=== PATIENT | female | born 1980 | race Caucasian/White ===

== ENCOUNTER 2017-01-28 21:42 | Emergency (ER) | payer MEDICAID ==
[~2017-01-28] VITALS: Ht 157.5 cm; Wt 46.3 kg
[~2017-01-28 21:42] MED LIST: ATIVAN1 MG PO; VENTOLIN H0.09 MG/Ac IH
[2017-01-28 21:45] VITALS: BP 125/70
--- NOTE | 2017-01-28 21:57 | NUR ---
PATIENT PRESENTS TO ED WITH C/O CP AND MICHAUD X 2 DAYS . 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 PT DENIES N/V/D; SKIN IS PINK/WARM/DRY; AAOX4 WITH EVEN AND STEADY GAIT; LUNGS CLEAR BL; HR EVEN AND REGULAR; PT DENIES ANY FEVER, SOB, OR COUGH AT THIS TIME; PATIENT STATES PAIN OF 10/10 AT THIS TIME; VSS; PATIENT POSITIONED FOR COMFORT; HOB ELEVATED; BEDRAILS UP X2; BED DOWN. ER MD MADE AWARE OF PT STATUS.
--- NOTE | 2017-01-28 21:57 | NUR ---
PT TAKEN TO BED 5
[2017-01-28] MEDS ORDERED: KETOROLAC 30 MG/ML VIAL IM ONE (22:25)
[2017-01-28] MEDS ORDERED: LORazepam 1 MG TAB PO ONE (22:25)
[2017-01-28] MEDS ORDERED: NACL 0.9% 1,000 ML IV ONE (23:35)
--- NOTE | 2017-01-29 00:54 | NUR ---
PT LEFT TO CT
--- NOTE | 2017-01-29 01:51 | NUR ---
PT RETURN FROM CT
--- NOTE | 2017-01-29 02:53 | NUR ---
IV removed, catheter intact and site benign. Applied folded 4x4 gauze and tape to stop bleeding.
[2017-01-29 02:54] VITALS: BP 114/76
--- NOTE | 2017-01-29 02:54 | NUR ---
Patient discharged with v/s stable. Written and verbal after care instructions given and explained. Patient alert, oriented and verbalized understanding of instructions. Ambulatory with steady gait. All questions addressed prior to discharge. ID band removed. Patient advised to follow up with PMD. Rx of TYLENOL #3 TAB given. Patient educated on indication of medication including possible reaction and side effects. Opportunity to ask questions provided and answered.
== END 2017-01-29 02:54 | disposition home or self-care (01) ==
LOC: MED 21:42
DX: R07.89 Other chest pain (principal); J45.909 Unspecified asthma, uncomplicated; F41.9 Anxiety disorder, unspecified; Z85.9 Personal history of malignant neoplasm, unspecified; Z88.0 Allergy status to penicillin
CPT/HCPCS: 36415; 71010; 71275; 80053; 82550; 82553; 83690; 84484; 85025; 85379; 93005; 96360; 96361; 96372; 99285; J1885; J7030; Q0092; Q9967

== ENCOUNTER 2017-11-02 02:20 | Emergency (ER) | payer MEDICAID ==
[~2017-11-02] VITALS: Ht 157.5 cm; Wt 41.7 kg
[~2017-11-02 02:20] MED LIST changes: +ALBU0.0912 IH; -ATIVAN1 MG PO; +LORA-476 PO; -VENTOLIN H0.09 MG/Ac IH
[2017-11-02 02:31] VITALS: BP 123/83
--- NOTE | 2017-11-02 02:41 | NUR ---
TO ER BED 11
--- NOTE | 2017-11-02 03:14 | NUR ---
PT STATES SHE WAS WALKING AND FELL, LEFT ANKLE IS SWOLLEN, SKIN INTACT, NO REDNESS OR BRUISING NOTED AT THIS TIME. PAIN 9/10 NON RADIATING TO LEFT ANKLE. PT DENIES TAKING MEDS AT HOME FOR PAIN. CMS INTACT, +PULSES.
[2017-11-02] MEDS ORDERED: KETOROLAC 60 MG/2 ML VIAL IM ONE (04:00)
[2017-11-02 04:36] VITALS: BP 122/78
== END 2017-11-02 04:36 | disposition home or self-care (01) ==
LOC: MED 02:20
DX: S93.402A Sprain of unspecified ligament of left ankle, initial encounter (principal); J45.909 Unspecified asthma, uncomplicated; Z88.0 Allergy status to penicillin; Z88.1 Allergy status to other antibiotic agents; Z79.899 Other long term (current) drug therapy; Z90.89 Acquired absence of other organs; X58.XXXA Exposure to other specified factors, initial encounter; Y93.89 Activity, other specified; Y92.89 Other specified places as the place of occurrence of the external cause; Y99.8 Other external cause status
CPT/HCPCS: 73610; 96372; 99284; J1885; Q0092

== ENCOUNTER 2018-04-19 23:58 | Emergency (ER) | payer MEDICAID, MEDICARE ==
[~2018-04-19] VITALS: Ht 157.5 cm; Wt 46.3 kg
[2018-04-20 00:05] VITALS: BP 119/93
--- NOTE | 2018-04-20 00:05 | NUR ---
Patient ambulated to bed 9. RN evaluating patient at bedside.
--- NOTE | 2018-04-20 00:06 | NUR ---
38 Y/O F W/C/O WOUND ON L AND R EYEBROW. PT STATES, "I GOT MY EYEBROW REMOVD AND INSISTED THAT THEY FILL IT BACK IN RIGHT THEN AND THERE EVEN THOUGH THE JUS TOLD ME I SHOULD NOT DO THAT, BUT I SIGNED A WAIVER AGAINST HIS ADIVE." PT STATES SHE SNEEZED AND PUSS CAME OUT. NO DRAINAGE NOTED AT THIS TIME. RED OPEN WOUND NOTED ON L EYEBROW. NO PMH ALLERGIES TO PENICILLINS AND ERYTHROMYCIN
--- NOTE | 2018-04-20 00:15 | NUR ---
Dr. Moore evaluating patient at bedside.
--- NOTE | 2018-04-20 00:15 | NUR ---
Patient discharged with v/s stable. Written and verbal after care instructions given and explained. Patient alert, oriented and verbalized understanding of instructions. Ambulatory with steady gait. All questions addressed prior to discharge. ID band removed. Patient advised to follow up with PMD. Rx of KEFLEX 500MG AND BACTRIM DS 800MG-16-MG given. Patient educated on indication of medication including possible reaction and side effects. Opportunity to ask questions provided and answered.
[2018-04-20] MEDS ORDERED: CEPHALEXIN 500 MG CAP PO ONE (00:20)
[2018-04-20] MEDS ORDERED: SULFAMETH/TRIMETH DS 800/160MG 1 TAB PO ONE (00:20)
[2018-04-20 01:15] VITALS: BP 122/72
== END 2018-04-20 00:15 | disposition home or self-care (01) ==
LOC: MED 23:58
DX: S01.102A Unspecified open wound of left eyelid and periocular area, initial encounter (principal); L08.9 Local infection of the skin and subcutaneous tissue, unspecified; J45.909 Unspecified asthma, uncomplicated; Z85.858 Personal history of malignant neoplasm of other endocrine glands; Z88.0 Allergy status to penicillin; X58.XXXA Exposure to other specified factors, initial encounter; Y93.89 Activity, other specified; Y99.8 Other external cause status; Y92.89 Other specified places as the place of occurrence of the external cause
CPT/HCPCS: 99283